=== PATIENT | male | born 1950 | race Caucasian/White ===

== ENCOUNTER 2017-02-18 03:37 | Emergency (ER) | payer OTHER ==
[~2017-02-18] VITALS: Ht 175.3 cm; Wt 125.0 kg
[2017-02-18] MEDS ORDERED: OLME1TAB30 PO (04:03)
[2017-02-18] MEDS ORDERED: ASPI-515 PO (04:03)
[2017-02-18] MEDS ORDERED: ALLO300T PO (04:03)
[2017-02-18 05:49] LABS: PATH.CAST-FLAG NOT PRESENT; SPERM-FLAG NOT PRESENT; SRC-FLAG NOT PRESENT; XTAL-FLAG NOT PRESENT; YLC-FLAG NOT PRESENT
[2017-02-18] MEDS ORDERED: LIDOCAINE 1%, 20ML ONE (10:27)
[2017-02-18] MEDS ORDERED: NALOXONE 1 MG/ML, 2ML ONE (10:42)
[2017-02-18] MEDS ORDERED: MIDAZOLAM 1 MG/ML, 5ML ONE (10:42)
[2017-02-18] MEDS ORDERED: FLUMAZENIL 0.1 MG/1 ML, 5ML ONE (10:42)
[2017-02-18] MEDS ORDERED: FENTANYL PF 100 MCG/2ML ONE (10:42)
[2017-02-18] MEDS ORDERED: VISIPAQUE 270 MG/ML, 50ML BOTTLE ONE (11:00)
[2017-02-18] MEDS ORDERED: CIPROFLOXACIN 400MG/200ML PMX ONE (11:38)
[2017-02-18] MEDS ORDERED: CIPROFLOXACIN/PMX 400MG/200ML 200 ML IVPB ONE (12:00)
[2017-02-18 12:25] VITALS: BP 120/80
== END 2017-02-18 13:49 | disposition home or self-care (01) ==
LOC: ED 04:13
DX: N40.1 Benign prostatic hyperplasia with lower urinary tract symptoms (principal); R31.0 Gross hematuria; Z85.46 Personal history of malignant neoplasm of prostate; I10 Essential (primary) hypertension; E78.00 Pure hypercholesterolemia, unspecified
CPT/HCPCS: 36415; 51102; 74176; 75989; 80047; 81001; 87086; 99156; 99157; 99284; C1725; C1769; C1894; J0744; J2250; J3010; J3490; Q9966; J2310

== ENCOUNTER → 2018-01-30 | Outpatient (CLI) | payer MEDICARE ==
[~2018-01-30] MED LIST: ALLO300T PO; ASPI-515 PO; OLME1TAB30 PO; OMNIPAQUE 350 MG/ML, 150 ML BOTTLE ONE
== END | disposition home or self-care (01) ==
LOC: CFH 08:03
PROVIDERS: ATTEND Urology
DX: N13.30 Unspecified hydronephrosis (principal); N13.4 Hydroureter; N32.89 Other specified disorders of bladder; K57.30 Diverticulosis of large intestine without perforation or abscess without bleeding; I70.0 Atherosclerosis of aorta; J98.11 Atelectasis; R31.0 Gross hematuria; Z88.1 Allergy status to other antibiotic agents; Z85.46 Personal history of malignant neoplasm of prostate; Z87.891 Personal history of nicotine dependence
CPT/HCPCS: 74178; 82565; Q9967

== ENCOUNTER → 2018-04-10 | Outpatient (CLI) | payer MEDICARE ==
[~2018-04-10] MED LIST changes: +ATOR20TA9 PO; +GLUC-121 PO; +LORA10TA3 PO; +OLME1TAB PO; -OMNIPAQUE 350 MG/ML, 150 ML BOTTLE ONE; +[UNRECOGNIZED DRUG - OTHER] PO
[2018-04-10 09:29] LABS: MICROSCOPIC INDICATED
[2018-04-10 09:30] LABS: BASOPHILS # (AUTO) 0.03 x10^3/uL (0-0.1); BASOPHILS % (AUTO) 0 % (0-1); EOSINOPHILS # (AUTO) 0.06 x10^3/uL (0-0.4); EOSINOPHILS % (AUTO) 1 % (1-7); LYMPHOCYTES # (AUTO) 1.16 x10^3/uL (1-3.4); LYMPHOCYTES % (AUTO) 14 % (22-44); MD NO; MEAN CORPUSCULAR HEMOGLOBIN 31.1 pg (27.5-34.5); MEAN CORPUSCULAR HGB CONC 33.8 g/dL (33.2-36.2); MEAN PLATELET VOLUME 9.7 fL (7.4-10.4); MONOCYTES # (AUTO) 0.64 x10^3/uL (0.2-0.8); MONOCYTES % (AUTO) 8 % (2-9); NEUTROPHILS # (AUTO) 6.29 x10^3/uL (1.8-6.8); NEUTROPHILS % (AUTO) 77 % (42-75); PLATELET COUNT 195 x10^3/uL (130-400); RED BLOOD COUNT 4.44 x10^6/uL (4.38-5.82); RED CELL DISTRIBUTION WIDTH 14.6 % (9.4-14.8)
[2018-04-10 09:32] LABS: ALANINE AMINOTRANSFERASE 27 U/L (12-78); ALBUMIN 3.9 g/dL (3.4-5.0); ANION GAP 8 mmol/L (5-15); CALCIUM 9.3 mg/dL (8.5-10.1); CHLORIDE 108 mmol/L (98-107); CREATININE 1.05 mg/dL (0.7-1.3)
[2018-04-10 09:34] LABS: ALKALINE PHOSPHATASE 80 U/L (45-117); BILIRUBIN,TOTAL 0.5 mg/dL (0.2-1.0); TOTAL PROTEIN 7.1 g/dL (6.4-8.2)
== END | disposition home or self-care (01) ==
LOC: STAR 08:14
PROVIDERS: ATTEND Urology
DX: Z01.818 Encounter for other preprocedural examination (principal); N20.1 Calculus of ureter
CPT/HCPCS: 36415; 80053; 81001; 85025; 87086; 93005

== ENCOUNTER 2018-04-23 08:25 | Day surgery (SDC) | payer MEDICARE ==
[~2018-04-23] VITALS: Ht 175.3 cm; Wt 113.7 kg
[2018-04-23] MEDS ORDERED: FENTANYL PF 100 MCG/2ML ONE ×2 (08:31→10:36)
[2018-04-23 08:54] VITALS: BP 157/90
[2018-04-23] MEDS ORDERED: LACTATED RINGERS 1,000 ML IV SCH (08:56)
[2018-04-23] MEDS ORDERED: FENTANYL PF 100 MCG/2ML IV PRN (09:00)
[2018-04-23] MEDS ORDERED: hydrALAzine 20 MG/ML, 1ML IV PRN (09:00)
[2018-04-23] MEDS ORDERED: LABETALOL 5MG/ML, 20ML IV PRN (09:00)
[2018-04-23] MEDS ORDERED: OXYcodone 5 MG/5 ML ORAL.SOL UDC PO PRN (09:00)
[2018-04-23] MEDS ORDERED: HYDROmorphone 2 MG/ML, 1ML IV PRN (09:00)
[2018-04-23] MEDS ORDERED: DIPHENHYDRAMINE 50 MG/ML, 1ML IVPush PRN (09:00)
[2018-04-23] MEDS ORDERED: MEPERIDINE/PF 25MG/0.5ML IVPush PRN (09:00)
[2018-04-23] MEDS ORDERED: PROCHLORPERAZINE 5 MG/ML, 2ML IV PRN (09:00)
[2018-04-23] MEDS ORDERED: KETOROLAC 30 MG/1 ML ONE (09:57)
[2018-04-23] MEDS ORDERED: PROPOFOL 10 MG/ML, 20ML ONE (09:57)
[2018-04-23] MEDS ORDERED: ONDANSETRON 2MG/ML, 2ML ONE (09:57)
[2018-04-23] MEDS ORDERED: DEXAMETHASONE 4 MG/ML, 1ML ONE (09:57)
== END 2018-04-23 13:35 | disposition home or self-care (01) ==
LOC: OUT 08:25
PROVIDERS: ATTEND Urology
DX: N21.1 Calculus in urethra (principal); N42.0 Calculus of prostate; Z72.89 Other problems related to lifestyle; Z87.891 Personal history of nicotine dependence; Z88.1 Allergy status to other antibiotic agents; Z88.8 Allergy status to other drugs, medicaments and biological substances; Z87.440 Personal history of urinary (tract) infections
CPT/HCPCS: 52353; 82360; 88300; J1100; J1885; J2405; J2704; J3010; J7120

== ENCOUNTER 2020-03-22 21:02 | Emergency (ER) | payer MEDICARE ==
[~2020-03-22] VITALS: Ht 175.3 cm; Wt 112.3 kg
[~2020-03-22 21:02] MED LIST changes: +ATOR20TA37 PO; -ATOR20TA9 PO; +LORA-247 PO; -LORA10TA3 PO
--- NOTE | 2020-03-22 21:25 | NUR ---
Provider at bedside
--- NOTE | 2020-03-22 21:37 | NUR ---
Bladder scan >1000mL. Provider aware. Plan for [facility]
[2020-03-22] MEDS ORDERED: LIDOCAINE 2%,20 ML JEL.PF.APP MM ONE ×2 (21:39→23:00)
--- NOTE | 2020-03-22 22:33 | NUR ---
Multiple attempts by this RN to place forman and irrigate. Significant resistance noted. 3-way forman in place, significant clots noted with minimal drainage. Provider aware
--- NOTE | 2020-03-23 00:37 | NUR ---
Multiple attempts by this RN, secondary RN, and MD to place 3-way forman and irrigate without success. Approx 900 mL output noted during forman placement attempts with multiple significant clots. Plan for urology c/s
--- NOTE | 2020-03-23 00:38 | NUR ---
Provider at bedside
[2020-03-23 01:43] LABS: BASOPHILS % (AUTO) 1 % (0-1); EOSINOPHILS % (AUTO) 0 % (1-7); LYMPHOCYTES % (AUTO) 7 % (22-44); MEAN CORPUSCULAR HEMOGLOBIN 31.3 pg (27.5-34.5); MEAN CORPUSCULAR HGB CONC 33.6 g/dL (33.2-36.2); MEAN PLATELET VOLUME 9.6 fL (7.4-10.4); MONOCYTES % (AUTO) 7 % (2-9); NEUTROPHILS % (AUTO) 85 % (42-75); PLATELET COUNT 195 x10^3/uL (130-400); RED BLOOD COUNT 4.84 x10^6/uL (4.38-5.82)
[2020-03-23 01:44] LABS: MD NO
[2020-03-23 01:48] LABS: ANION GAP 7 mmol/L (5-15); CALCIUM 9.2 mg/dL (8.5-10.1); CHLORIDE 108 mmol/L (98-107); CREATININE 0.91 mg/dL (0.7-1.3)
[2020-03-23] MEDS ORDERED: HYDROcodone/APAP 5/325 TABLET PO PRN (02:00)
[2020-03-23] MEDS ORDERED: DOCUSATE 100 MG CAPSULE PO PRN (02:00)
[2020-03-23] MEDS ORDERED: ACETAMINOPHEN 325 MG TABLET PO PRN (02:00)
[2020-03-23] MEDS ORDERED: ENALAPRILAT 1.25 MG/ML, 2ML IVPush PRN (02:00)
[2020-03-23] MEDS ORDERED: morphine SULFATE 10 MG/ML, 1ML IVPush PRN (02:00)
[2020-03-23] MEDS ORDERED: ONDANSETRON 2MG/ML, 2ML IVPush PRN (02:00)
[2020-03-23] MEDS ORDERED: ZOLPIDEM 5MG TABLET PO PRN (02:00)
[2020-03-23] MEDS ORDERED: CYCLOBENZAPRINE 10 MG TABLET PO PRN (02:00)
[2020-03-23] MEDS ORDERED: SODIUM CHLORIDE 0.9% 1,000 ML IV SCH (02:00)
[2020-03-23] MEDS ORDERED: GUAIFENESIN/DM 200-20MG, 10ML UDC PO PRN (02:00)
--- NOTE | 2020-03-23 04:12 | NUR ---
PT PLACED ON HOSPITAL BED. ALL NEEDS MET AT THIS TIME. VICK.
--- NOTE | 2020-03-23 05:18 | NUR ---
Verbal phone order from urology for bladder scan. Scan showed 168 in bladder. Pt able to urinate ~575 independently prior to bladder scan
[2020-03-23 05:32] LABS: MICROSCOPIC AUTO
--- NOTE | 2020-03-23 06:42 | NUR ---
Resting comfortably on bed. No s/sx acute distress. Visible chest rise/fall noted. Bed low, side rails up, call arnold within reach
--- NOTE | 2020-03-23 07:18 | NUR ---
PT LAYING SUPINE IN BED, RESTING WITH EYES CLOSED UPON ENTRY TO ROOM. PT AWAKENS EASILY, AO. NAD NOTED AT THIS TIME. URINAL EMPTIED FOR PT USE. PT DENIES FURTHER NEEDS AT THIS TIME. AWAITING UROLOGY DECISION FOR OR VERSUS ADMIT. CALL LIGHT IN REACH, SIDE RAIL UP.
--- NOTE | 2020-03-23 08:27 | NUR ---
PER UROLOGY PT DOES NOT NEED OR OR ADMISSION. CALL TO HOSPITALIST REGARDING DISCHARGE ORDERS. MESSAGE LEFT REGARDING CHANGE IN PLAN AND ORDERS. THROUGHPUT AWARE.
--- NOTE | 2020-03-23 08:52 | NUR ---
PT AWARE OF PLAN FOR DC. PO FLUIDS PROVIDED. AWAITING CALL BACK FROM HOSPITALIST.
[2020-03-23] MEDS ORDERED: FAMOTIDINE 20 MG/2 ML IVPush SCH (09:00)
--- NOTE | 2020-03-23 09:06 | NUR ---
TASK RN NOTE: ELIER DEMPSEY CALLED AND NOTIFIED OF PT'S DC ORDERS. DC RN STATES SHE WILL BEGIN DC PAPERWORK AND NOTIFY ED WHEN COMPLETE.
[2020-03-23] MEDS ORDERED: ALFU10TA4 PO (09:15)
[2020-03-23 10:15] VITALS: BP 123/67
== END 2020-03-23 10:20 | disposition home or self-care (01) ==
LOC: ED 21:25 → EDIP 03-23 01:30 → UNDOADMIN 03-23 01:30 → ED 03-23 10:20
DX: R40.1 Stupor (principal); R33.8 Other retention of urine; E78.00 Pure hypercholesterolemia, unspecified; I10 Essential (primary) hypertension; Z85.46 Personal history of malignant neoplasm of prostate
CPT/HCPCS: 36415; 80048; 81001; 82040; 85025; 87086; 87635; 99285